=== PATIENT | male | born 1995 | race Caucasian/White ===

== ENCOUNTER 2020-11-23 14:40 | Emergency (ER) | payer BC ==
[~2020-11-23] VITALS: Ht 188 cm; Wt 118.2 kg
[2020-11-23 14:42] VITALS: TEMP 98.9
[2020-11-23] MEDS ORDERED: XYZAL5 MG PO (14:53)
[2020-11-23] MEDS ORDERED: SINGULAIR 110 MG/TAB PO (14:53)
[2020-11-23] MEDS ORDERED: ZOLOFT 100MG100 MG PO (14:54)
[2020-11-23] MEDS ORDERED: PREDNISONE20 MG PO (16:21)
[2020-11-23] MEDS ORDERED: EPIPEN 2-PAK1 MG/ML IM (16:21)
[2020-11-23 16:30] VITALS: BP 129/74; PULSE 81
== END 2020-11-23 16:33 | disposition home or self-care (01) ==
LOC: COL.ER 14:40
DX: T78.40XA Allergy, unspecified, initial encounter (principal); J45.909 Unspecified asthma, uncomplicated; F17.200 Nicotine dependence, unspecified, uncomplicated; Z88.0 Allergy status to penicillin
CPT/HCPCS: J2930; J7030